=== PATIENT | female | born 1995 | race Caucasian/White ===

== ENCOUNTER 2018-11-20 16:48 | Emergency (ER) | payer BC, SELFPAY ==
[2018-11-20 17:18] VITALS: BP 128/84; PULSE 79; RESP 17; TEMP 37.4; O2SAT 98; BMI 31.4
[2018-11-20 17:45] LABS: Basophils % 0.3 % (0.1-2.0); Eosinophils # 0.1 K/mm3 (0.0-0.4); Eosinophils % 1.1 % (0.1-12.0); Hematocrit 37.5 % (37.0-47.0); Hemoglobin 12.4 g/dL (12.2-16.2); Lymphocytes # 2.3 K/mm3 (0.7-4.5); Lymphocytes % 37.4 % (10-50); Mean Corpuscular Hemoglobin 28.5 pg (27.0-31.2); Mean Corpuscular Volume 86.3 fl (81-99); Mean Platelet Volume 6.9 fl (7.4-10.4); Monocytes # 0.4 K/mm3 (0.1-1.0); Monocytes % 6.3 % (1.7-9.3); Neutrophils # 3.4 K/mm3 (1.8-7.8); Neutrophils % 54.9 % (37.0-80.0); Platelet Count 311 K/mm3 (142-424); Red Blood Count 4.35 M/mm3 (4.20-5.40); Red Cell Distribution Width 14.2 % (11.5-17.5); White Blood Count 6.2 K/mm3 (4.8-10.8)
[2018-11-20 17:50] VITALS: BP 117/73; PULSE 79; RESP 18; O2SAT 100
[2018-11-20 17:57] LABS: Alanine Aminotransferase 21 U/L (12-78); Albumin Level 3.8 gm/dL (3.4-5.0); Alkaline Phosphatase 61 U/L (46-116); Anion Gap 11.5 mEq/L (5-15); Aspartate Amino Transferase 10 U/L (15-37); Bilirubin,Total 0.6 mg/dL (0.2-1.0); Blood Urea Nitrogen 13 mg/dL (7-18); Calcium 8.7 mg/dL (8.5-10.1); Carbon Dioxide 24 mmol/L (21.0-32.0); Chloride 104 mmol/L (98-107); Creatinine Clearance Estimated 178 mL/min (50-200); Creatinine,Serum 0.68 mg/dL (0.55-1.02); Estimated Glomerular Filt Rate 106 ml/min (>60); GFR (African American) 129 ML/MIN (>60); Globulin 3.7 gm/dl (1.3-3.2); Glucose 83 mg/dL (74-106); Potassium 3.5 mmoL/L (3.5-5.1); Sodium 136 mmol/L (136-145); Total Protein,Serum 7.5 gm/dL (6.4-8.2)
--- NOTE | 2018-11-20 18:03 | HMH.EDABDPAI ---
ED Disposition Clinical Impression: First trimester Disposition: Home, Self-Care Condition on Discharge: Fair Instructions: DI for Acute Abdomen Additional Instructions: 1- Follow up with the spa attendant on Thursday for repeated HCG hormone level. 2- a copy of today's lab to go with the patient. 3- to return for worse pain or vaginal bleeding. Referrals: Sophie Dela Cruz MD [Primary Care Provider] - - Critical Care Critical Care Time: No Attestation: On 11/20/18, the high probability of a clinically significant, sudden or life threatening deterioration of the following system(s) required my full and direct attention, intervention and personal management. The time I documented below is in addition to time spent performing reported procedures but includes the following listed in this critical care notation. Medical Decision Making - Earnest Inquiry Pt receiving controlled substance: No Earnest was queried for this patient: No Vital Signs: 11/20/18 17:18 11/20/18 17:50 11/20/18 18:30 Temperature 99.4 F Temperature Source Oral Pulse Rate [Right Brachial] 79 79 71 Respiratory Rate 17 18 18 Blood Pressure [Right Arm] 128/84 117/73 115/74 Blood Pressure Mean [Right Arm] 98 87 87 Blood Pressure Source [Right Arm] Automatic Cuff Automatic Cuff Automatic Cuff Blood Pressure Position [Right Arm] Sitting Sitting Sitting 02 Sat by Pulse Oximetry 98 100 100 Oxygen Delivery Method Room Air Room Air Room Air - Lab Data Lab Results 11/20/18 17:30: WBC 6.2, RBC 4.35, Hgb 12.4, Hct 37.5, MCV 86.3, MCH 28.5, MCHC 33.0, RDW 14.2, Plt Count 311, MPV 6.9 L, Neut % (Auto) 54.9, Lymph % (Auto) 37.4, Sullivan % (Auto) 6.3, Eos % (Auto) 1.1, Baso % (Auto) 0.3, Neut # (Auto) 3.4, Lymph # (Auto) 2.3, Sullivan # (Auto) 0.4, Eos # (Auto) 0.1, Baso # (Auto) 0.0 11/20/18 17:30: Sodium 136, Potassium 3.5, Chloride 104, Carbon Dioxide 24, Anion Gap 11.5, BUN 13, Creatinine 0.68, Estimated Creat Clear 178, Estimated GFR 106, Est GFR ( Amer) 129, Glucose 83, Calcium 8.7, Total Bilirubin 0.6, AST 10 L, ALT 21, Alkaline Phosphatase 61, Total Protein 7.5, Albumin 3.8, Globulin 3.7 H, Albumin/Globulin Ratio 1.0 L 11/20/18 17:30: Blood Type O Positive 11/20/18 17:30: HCG, Quant 944 H 11/20/18 19:05: Urine Color Yellow, Urine Appearance Clear, Urine pH 6.5, Ur Specific [place] 1.015, Urine Protein Negative, Urine Glucose (UA) Negative, Urine Ketones Negative, Urine Blood Negative, Urine Nitrate Negative, Urine Bilirubin Negative, Urine Urobilinogen 0.2, Ur Leukocyte Esterase Negative, Ur Squamous Epith Cells Occasional 11/20/18 19:05: Urine HCG, Qual Positive Result diagrams: 11/20/18 17:30 11/20/18 17:30 Orders (Tests/Meds): ORDERS Category Date Time Status US OB transvaginal Stat Ultrasound 11/20/18 18:41 Taken - US Data US Images: Pelvis, Other Findings Narrative: I discussed with the insulation technician Jenny', there is a small sac that matches the low serum hormone level. She will need follow-up on her hormone level by her spa attendant. Medical Decision Narrative: I spoke with the patient that she needs to have repeated beta-hCG by her spa attendant. She will see her on Thursday, November 22, 2018. If the patient copies of her labs, she is to return for worse symptoms of vaginal bleeding. Abdominal Pain HPI - General Chief Complaint: Abdominal Pain Stated Complaint: having Cramps/Sharp pain Time Seen by Provider: 11/20/18 17:30 Mode of Arrival: Ambulatory Limitations: No Limitations Description of Symptoms (Recalled from ER Triage Doc. by RN): POSITIVE PREG TEST AT HOME X7; PT HAVING SHARP PAINS - History of Present Illness HPI narrative: 23 years old white female with the history of preeclampsia and . She is 2 para 1 A0 with last menstrual period was October 15, 2018. The patient stated that she underwent multiple home test that were positive, she has been experiencin
--- NOTE | 2018-11-20 18:08 | ED_ITS ---
ED Disposition Clinical Impression: First trimester Disposition: Home, Self-Care Condition on Discharge: Fair Instructions: DI for Acute Abdomen Additional Instructions: 1- Follow up with the traffic sign supervisor on Thursday for repeated HCG hormone level. 2- a copy of today's lab to go with the patient. 3- to return for worse pain or vaginal bleeding. Referrals: Sophie Dela Cruz MD [Primary Care Provider] - - Critical Care Critical Care Time: No Attestation: On 11/20/18, the high probability of a clinically significant, sudden or life threatening deterioration of the following system(s) required my full and direct attention, intervention and personal management. The time I documented below is in addition to time spent performing reported procedures but includes the following listed in this critical care notation. Medical Decision Making - Earnest Inquiry Pt receiving controlled substance: No Earnest was queried for this patient: No Vital Signs: 11/20/18 17:18 11/20/18 17:50 11/20/18 18:30 Temperature 99.4 F Temperature Source Oral Pulse Rate [Right Brachial] 79 79 71 Respiratory Rate 17 18 18 Blood Pressure [Right Arm] 128/84 117/73 115/74 Blood Pressure Mean [Right Arm] 98 87 87 Blood Pressure Source [Right Arm] Automatic Cuff Automatic Cuff Automatic Cuff Blood Pressure Position [Right Arm] Sitting Sitting Sitting 02 Sat by Pulse Oximetry 98 100 100 Oxygen Delivery Method Room Air Room Air Room Air - Lab Data Lab Results 11/20/18 17:30: WBC 6.2, RBC 4.35, Hgb 12.4, Hct 37.5, MCV 86.3, MCH 28.5, MCHC 33.0, RDW 14.2, Plt Count 311, MPV 6.9 L, Neut % (Auto) 54.9, Lymph % (Auto) 37.4, [place] % (Auto) 6.3, Eos % (Auto) 1.1, Baso % (Auto) 0.3, Neut # (Auto) 3.4, Lymph # (Auto) 2.3, [place] # (Auto) 0.4, Eos # (Auto) 0.1, Baso # (Auto) 0.0 11/20/18 17:30: Sodium 136, Potassium 3.5, Chloride 104, Carbon Dioxide 24, Anion Gap 11.5, BUN 13, Creatinine 0.68, Estimated Creat Clear 178, Estimated GFR 106, Est GFR ( Amer) 129, Glucose 83, Calcium 8.7, Total Bilirubin 0.6, AST 10 L, ALT 21, Alkaline Phosphatase 61, Total Protein 7.5, Albumin 3.8, Globulin 3.7 H, Albumin/Globulin Ratio 1.0 L 11/20/18 17:30: Blood Type O Positive 11/20/18 17:30: HCG, Quant 944 H 11/20/18 19:05: Urine Color Yellow, Urine Appearance Clear, Urine pH 6.5, Ur Specific [place] 1.015, Urine Protein Negative, Urine Glucose (UA) Negative, Urine Ketones Negative, Urine Blood Negative, Urine Nitrate Negative, Urine Bilirubin Negative, Urine Urobilinogen 0.2, Ur Leukocyte Esterase Negative, Ur Squamous Epith Cells Occasional 11/20/18 19:05: Urine HCG, Qual Positive Result diagrams: 11/20/18 17:30 11/20/18 17:30 Orders (Tests/Meds): ORDERS Category Date Time Status US OB transvaginal Stat Ultrasound 11/20/18 18:41 Taken - US Data US Images: Pelvis, Other Findings Narrative: I discussed with the extrusion technician Jenny', there is a small sac that matches the low serum hormone level. She will need follow-up on her hormone level by her traffic sign supervisor. Medical Decision Narrative: I spoke with the patient that she needs to have repeated beta-hCG by her traffic sign supervisor. She will see her on Thursday, November 22, 2018. If the patient copies of her labs, she is to return
[2018-11-20 18:18] LABS: HCG,Quantitative 944 mIU/mL
--- NOTE | 2018-11-20 18:19 | PC.NURSE ---
unable to obtain cath specimen
[2018-11-20 18:30] VITALS: BP 115/74; PULSE 71; RESP 18; O2SAT 100
--- NOTE | 2018-11-20 18:41 | US_ITS ---
US OB transvaginal HISTORY: Early OB with cramping ITS.REASON: lower abdominal pain ORDERING PHYSICIAN: Ruben Hwang MD PATIENT AGE: 23 years COMPARISON: None FINDINGS: Endovaginal exam performed. The uterus is retroverted. No definite gestational sac apparent. There is an area of decreased echogenicity along the uterine fundus dorsally however, this is equivocal for a gestational sac. Adnexa are unremarkable. No cul-de-sac fluid is evident. There is a 13 x 8 mm right ovarian cyst nonspecific. Endometrium is thickened at 13 mm. IMPRESSION: 1. Cannot with certainty confirm an intrauterine gestational sac. There is a questionable gestational sac in the fundus. The uterus is retroverted. Endometrium is thickened. Recommend follow-up ultrasound and beta hCG 2. Small right ovarian cyst
--- NOTE | 2018-11-20 18:42 | PC.NURSE ---
radiology contacted about vaginal ultrasound
[2018-11-20 19:13] LABS: Microscopic, Urine URINE MICROSCOPIC (MICROSCOPIC)
[2018-11-20 19:15] LABS: Appearance,Urine CLEAR (Clear); Bilirubin,Urine Negative (Negative); Blood, Urine Negative (Negative); Color,Urine YELLOW (Yellow); Glucose,Urine (UA) Negative (Negative); Ketones,Urine Negative (Negative); Leukocyte Esterase,Urine Negative (Negative); Nitrate,Urine Negative (Negative); PH,Urine 6.5 (5.0-8.5); Protein,Urine Negative (Negative); Specific Gravity, Urine 1.015 (1.005-1.030); Urine Pregnancy, HCG Qual. Positive (Negative); Urobilinogen,Urine 0.2 EU/dl (0.2)
[2018-11-20 19:16] LABS: Squamous Epithelial Cell,Urine Occasional #/hpf (0-5)
[2018-11-20 20:14] VITALS: BP 125/73; PULSE 68; RESP 17; TEMP 36.8; O2SAT 100
== END 2018-11-20 20:15 | disposition home or self-care (01) ==
PROVIDERS: Emergency Provider Emergency Medicine; PCP Family Medicine
DX: R10.84 Generalized abdominal pain (principal); Z34.91 Encounter for supervision of normal pregnancy, unspecified, first trimester
CPT/HCPCS: 76817; 80053; 81001; 81025; 84702; 85025; 86900; 86901; 99283

== ENCOUNTER 2020-04-19 17:25 | Emergency (ER) | payer BC, SELFPAY ==
[2020-04-19 17:50] VITALS: BP 106/72; PULSE 67; RESP 14; TEMP 36.8; O2SAT 100; BMI 29.8
--- NOTE | 2020-04-19 18:22 | HMH.EDUTC ---
[facility] [place] Disposition Clinical Impression: Folliculitis Disposition: Home, Self-Care Condition on Discharge: Good Instructions: Folliculitis, DI for Folliculitis Additional Instructions: Drink plenty of fluids. Take tylenol or ibuprofen for pain or fever. Take the medications as directed. Follow up with your regular doctor. GO TO THE ER FOR ANY WORSENING SYMPTOMS Prescriptions: Sulfamethoxazole/Trimethoprim [Bactrim DS tablet] 1 each PO BID 10 Days #20 tab Transmission Status: Received by [facility] Mupirocin [Bactroban 2% Ointment 22gm tube] 1 applicatio TP TID 7 Days #1 tube Transmission Status: Received by [facility] Triamcinolone Acetonide 1 applicatio TP TIDP PRN 7 Days #1 tube PRN Reason: Itching Transmission Status: Received by [facility] Referrals: Sophie Dela Cruz MD [Primary Care Provider] - Forms: Work/School Release Time of Disposition: 18:27 Medical Decision Making - Medical Records Medical records reviewed: No: I reviewed the patient's medical records. - Earnest Inquiry Pt receiving controlled substance: No Vital Signs: 04/19/20 17:50 04/19/20 18:31 Temperature 98.3 F 98.3 F Temperature Source Oral Pulse Rate 67 Pulse Rate [Right Brachial] 67 Respiratory Rate 14 14 Blood Pressure 106/72 L Blood Pressure [Right Arm] 106/72 L Blood Pressure Mean [Right Arm] 83 Blood Pressure Source [Right Arm] Automatic Cuff Blood Pressure Position [Right Arm] Sitting 02 Sat by Pulse Oximetry 100 Oxygen Delivery Method Room Air Orders (Tests/Meds): ED MEDICATIONS Discontinued Medications Generic Name Dose Route Start Last Admin Trade Name Freq PRN Reason Stop Dose Admin Ceftriaxone Sodium 1 gm 04/19/20 18:00 04/19/20 18:14 Ceftriaxone 1gm Vial IM 04/19/20 18:01 1 gm ONCE ONE Administration Protocol Lidocaine HCl 0 ml 04/19/20 18:00 04/19/20 18:14 Lidocaine 1% 5ml Pf Vial IM 04/19/20 18:01 2.1 ml ONCE ONE Administration Methylprednisolone Sodium Succinate 125 mg 04/19/20 18:00 04/19/20 18:14 Methylprednisolone Sod Succ 125mg Vial IM 04/19/20 18:01 125 mg ONCE ONE Administration ORDERS Category Date Time Status Wound Culture and Gram Stain Stat Micro 04/19/20 18:00 Results [facility] [place] HPI - General Stated complaint: Rash on neck & arms Time Seen by Provider: 04/19/20 18:00 Mode of Arrival: Ambulatory Source of Information: Patient Limitations: No Limitations Description of Symptoms (Recalled from Triage Doc. by RN): PATIENT C/O SORE ON LEFT SUAREZ AND RASH ON FACE AND ARMS THAT STARTED THURSDAY HEENT Symptoms (Recalled from RN notes): No Resp Symptoms (Recalled from RN notes): No Skin Symptoms (Recalled from RN notes): Yes MS Symptoms (Recalled from RN notes): No Functional Status (Recalled from RN notes): WNL - History of Present Illness Provider Complaint: She c/o having places all over her that are itching. She cannot identify any thing that she is allergic to that she has been exposed to. - Related Data Home Medications Medication Instructions Recorded Confirmed Valacyclovir HCl [Valacyclovir] 1 tab PO TID 11/20/18 11/20/18 Previous Rx's Medication Instructions Recorded Mupirocin [Bactroban 2% Ointment 1 applicatio TP TID 7 Days #1 tube 04/19/20 22gm tube] Sulfamethoxazole/Trimethoprim 1 each PO BID 10 Days #20 tab 04/19/20 [Bactrim DS tablet] Triamcinolone Acetonide 1 applicatio TP TIDP PRN 7 Days #1 04/19/20 tube Allergies Allergy/AdvReac Type Severity Reaction Status Date / Time No Known Allergies Allergy Verified 11/20/18 17:23 - Worker's Comp Is this a Worker's Comp case?: No [facility] History - Hepatitis A Screen Drug use history?: No High risk sexual behaviors?: No History of sexually transmitted infection?: No Currently employed?: No Childcare worker?: No Do you have indoor plumbing?: Yes Do you have electricity?: Y
[2020-04-19 18:31] VITALS: BP 106/72; PULSE 67; RESP 14; TEMP 36.8; O2SAT 100
== END 2020-04-19 18:40 | disposition home or self-care (01) ==
PROVIDERS: Emergency Provider Nurse Practitioner Family; PCP Family Medicine
DX: L73.9 Follicular disorder, unspecified (principal)
CPT/HCPCS: 87070; 87077; 87186; 87205; 96372; 99201

== ENCOUNTER → 2020-08-03 14:18 | Outpatient (CLI) | payer BC, SELFPAY | PROVIDERS: PCP Family Medicine; Visit Provider Physician Assistant | DX: Z20.822 Contact with and (suspected) exposure to COVID-19 (principal) | CPT/HCPCS: U0003 ==